=== PATIENT | male | born 1970 | race Caucasian/White ===

== ENCOUNTER 2020-05-26 14:32 | Outpatient (CLI) | payer BC, SELFPAY ==
--- NOTE | 2020-05-26 14:52 | ECHO_ITS ---
Patient Info Name: Binh Muñoz Age: 50 years : 1970 Gender: Male Ht: 75 in Wt: 270 lbs BSA: 2.58 m2 HR: 73 bpm BP: 143 / 84 mmHg Heart Rhythm: Sinus Rhythm Technical Quality: Good, Fair Exam Date: 05/26/2020 3:09 PM Exam Location: [facility] Patient Status: Outpatient Admit Date: 05/26/2020 Staff Ordering Physician: Karlo Rebolleod PA-C Direct Service Provider: Lucia Samson RDCS Attending Provider: Karlo Rebolledo PA-C Referring Physician: Amaury DOBBINS; Exam Type: CA echo doppler color flow Study Info Indications - nonrheumatic mitral valve insuffiency Complete two-dimensional, color flow and Doppler transthoracic echocardiogram is performed. Summary 1. Left ventricular chamber dimension is mildly enlarged. 2. Left ventricular systolic function is normal, estimated at 50-55%. 3. The left atrium is moderately dilated. 4. The mitral valve has normal leaflets and posterior prolapse. 5. There is moderate mitral valve regurgitation. Left Ventricle Left ventricular chamber dimension is mildly enlarged. Left ventricular systolic function is normal, estimated at 50-55%. The left ventricular diastolic function is normal. Right Ventricle Right ventricular chamber dimension is normal. Left Atria The left atrium is moderately dilated. Right Atria Right atrial chamber dimension is normal. Aortic Valve The aortic valve is normal. Pulmonic Valve The pulmonic valve is not well visualized. Mitral Valve The mitral valve has normal leaflets and posterior prolapse. There is moderate mitral valve regurgitation. Tricuspid Valve The tricuspid valve leaflets are normal. Pericardium/Pleural The pericardium appears normal. Aorta The aortic root size at the sinus of Valsalva is normal. Left Ventricular Outflow Tract Name Value Normal LVOT 2D LVOT Diameter 2.1 cm LVOT Doppler LVOT Peak Gradient 4 mmHg LVOT Mean Gradient 2 mmHg LVOT VTI 21 cm LVOT VTI/AV VTI Ratio 0.9 LVOT Stroke Volume 77 ml LVOT CO 14.3 l/min LVOT CI 5.5 l/min/m2 Pulmonic Valve Name Value Normal PV Doppler PV Peak Gradient 3 mmHg Mitral Valve Name Value Normal MV Doppler MV Decel Prowers 328 cm/s2 MV PHT 75 ms MV Area (PHT) 2.9 cm2 4.0-5.0 MV Diastolic Function
== END 2020-05-26 14:33 | disposition home or self-care (01) ==
PROVIDERS: PCP Family Medicine; Visit Provider Physician Assistant
DX: I34.0 Nonrheumatic mitral (valve) insufficiency (principal); I51.7 Cardiomegaly
CPT/HCPCS: 93306

== ENCOUNTER 2024-02-01 13:23 | Outpatient (CLI) | payer OTHER, SELFPAY ==
--- NOTE | 2024-02-01 13:49 | ECHO_ITS ---
Patient Info Name: Binh Muñoz Age: 53 years : 1970 Gender: Male Ht: 74 in Wt: 290 lbs BSA: 2.67 m2 HR: 78 bpm BP: 178 / 111 mmHg Heart Rhythm: Sinus Rhythm Technical Quality: Good Exam Date: 02/01/2024 2:00 PM Exam Location: [facility] Patient Status: Outpatient Admit Date: 02/01/2024 Staff Ordering Physician: Isabelle Vasquez NP Optical Engineering Technician: Cami Hoskins RDCS Attending Provider: Isabelle Vasquez NP Referring Physician: Pedro HARRISON; Exam Type: CA echo doppler color flow Study Info Indications - non rhumatic valve disease Complete two-dimensional, color flow and Doppler transthoracic echocardiogram is performed. Summary 1. Left ventricular chamber dimension is mildly enlarged. 2. Left ventricular systolic function is normal, estimated at 60-65%. 3. There is mildly increased left ventricular wall thickness. 4. The left ventricular diastolic function is grade I diastolic dysfunction. 5. Right ventricular systolic function is normal. 6. Left atrial chamber dimension is mildly enlarged. 7. There is mild mitral valve regurgitation, which may be underestimated due to eccentricity of the jet. 8. There is mild tricuspid valve regurgitation. Left Ventricle Left ventricular chamber dimension is mildly enlarged. Left ventricular systolic function is normal, estimated at 60-65%. There is mildly increased left ventricular wall thickness. The left ventricular diastolic function is grade I diastolic dysfunction. Right Ventricle Right ventricular chamber dimension is normal. Right ventricular systolic function is normal. Left Atria Left atrial chamber dimension is mildly enlarged. Right Atria Right atrial chamber dimension is normal. Atrial Septum Intact interatrial septum visualized by color flow imaging. Aortic Valve The aortic valve is trileaflet. There is no aortic valve stenosis. There is no aortic valve regurgitation. Pulmonic Valve The pulmonic valve is not well visualized. Mitral Valve There is mild mitral valve regurgitation, which may be underestimated due to eccentricity of the jet. Tricuspid Valve There is mild tricuspid valve regurgitation. Pericardium/Pleural There is no pericardial effusion. Inferior Vena Cava Inferior vena cava is not well visualized. Aorta The aortic root size at the sinus of Valsalva is normal. Left Ventricular Outflow Tract Name Value Normal LVOT 2D LVOT Diameter 2.2 cm LVOT Doppler LVOT Peak Gradient 6 mmHg LVOT Mean Gradient 3 mmHg LVOT VTI 28 cm LVOT VTI/AV VTI Ratio 0.9 LVOT Stroke Volume 111 ml LVOT CO 8.7 l/min LVOT CI 3.3 l/min/m2 Pulmonic Valve Name Value Normal RVOT Doppler RVOT Peak Gradient 2 mmHg PV Doppler
== END 2024-02-01 13:24 | disposition home or self-care (01) ==
PROVIDERS: PCP Internal Medicine; Visit Provider Nurse Practitioner
DX: I34.0 Nonrheumatic mitral (valve) insufficiency (principal)
CPT/HCPCS: 93306

== ENCOUNTER 2024-04-17 01:59 | Day surgery (SDC) | payer OTHER, SELFPAY ==
[2024-04-03 11:20] VITALS: BMI 37.3
[2024-04-17 08:06] VITALS: BP 136/84; PULSE 66; RESP 17; TEMP 36.4; O2SAT 99; BMI 35.2
[2024-04-17] MEDS: LACTATED RINGERS 1,000 ML 150 ML IV CONT (08:12)
--- NOTE | 2024-04-17 08:15 | WPDANESEPPF ---
Anes - Initial Pre Proc Eval Procedure: Operation Date: 04/17/24 09:30 Proposed Procedures p Colonoscopy - Alistair Hackett MD Date/Time: 04/17/24 08:15 Surgeon: Alistair Hackett MD Pre Op Diagnosis: Personal history colon polyps Patient Data Age: 54 Gender: M Height: 1.88 m Weight: 124.3 kg Last Vital Signs Temp 97.5 F L 04/17/24 08:06 Pulse 66 04/17/24 08:06 Resp 17 04/17/24 08:06 BP 136/84 04/17/24 08:06 Pulse Ox 99 04/17/24 08:06 O2 Del Method Room Air 04/17/24 08:06 Allergies Allergy/AdvReac Type Severity Reaction Status Date / Time omeprazole Allergy Unknown diarrrhea Verified 04/17/24 08:05 Home Medications Medication Instructions Recorded Confirmed Type fluticasone propionate 50 1 spray intranasal DAILY 01/08/22 04/17/24 History mcg/actuation nasal spray,suspension (Flonase Allergy Relief) sildenafil 100 mg tablet 100 mg PO DAILY PRN sexual 10/20/23 04/17/24 Rx activity #10 tabs atorvastatin 20 mg tablet See Rx Instructions .Route 11/28/23 04/17/24 Rx .COMPLEX #90 tabs telmisartan 80 See Rx Instructions .Route 11/28/23 04/17/24 Rx mg-hydrochlorothiazide 12.5 mg .COMPLEX #90 tabs tablet Patient hx anesthesia problems: none Family hx anesthesia problems: none Results Review: All pre-operative results and documents have been reviewed as part of the pre-operative evaluation. [facility] Family History Family History Mother Hypertension Sibling Hypertension Family history of elevated blood lipids Social History Social History Social History: Caffeine-daily Smoking status: Never smoker Alcohol intake: current Alcohol use details: occasionally Lack of Transportation: No Lack of Food: Never True Current Housing: I Have Housing Concerned About Future Housing: No Difficulty Paying Gas/Electric Bills: No Difficulty Paying for Meds: No Currently Unemployed: No Education: High School Diploma/GED Difficulty w/ Childcare or Family Care: No Living arrangements: with family Spiritual care concerns: No Anes - Eval Final PreProcedure Day of Procedure 04/17/24 08:15 Patient weight: obese Heart: regular rate and rhythm Lungs: clear to auscultation Airway: Mallampati scale class II and special considerations (Poor flexion. ) poor extension Neurological: alert and oriented Last oral intake: >/= 8 hours ASA classification: III Emergent: no Anesthetic plan: proceed Anesthesia type and monitoring: general GIVS and standard monitoring Results Review: All pre-operative results and documents have been reviewed as part of the pre-operative evaluation. HTN, hyperlipidemia, LUIS on CPAP (mild per pt). Informed Consent: The patient's anesthetic plan and its attendant risks and benefits were discussed with the patient/family/POA. Questions were solicited and answers provided to the satisfaction of the patient/family/POA.
--- NOTE | 2024-04-17 09:21 | PM.HPGS ---
History of Present Illness History of Present Illness Consent: Risks, benefits, and alternatives have been discussed and questions answered. Patient agrees to proceed with procedure. Chief complaint: Personal history colon polyps Narrative: Binh Muñoz is a 54 year old male with colon polyp in 2019 Review of Systems Review of Systems: All systems reviewed & are unremarkable except as noted in HPI and below PMFSH Family History Family History Mother Hypertension Sibling Hypertension Family history of elevated blood lipids Social History Social History Social History: Caffeine-daily Smoking status: Never smoker Alcohol intake: current Alcohol use details: occasionally Lack of Transportation: No Lack of Food: Never True Current Housing: I Have Housing Concerned About Future Housing: No Difficulty Paying Gas/Electric Bills: No Difficulty Paying for Meds: No Currently Unemployed: No Education: High School Diploma/GED Difficulty w/ Childcare or Family Care: No Living arrangements: with family Spiritual care concerns: No Meds Home Medications and Allergies Home Medications Medication Instructions Recorded Confirmed Type fluticasone propionate 50 1 spray intranasal DAILY 01/08/22 04/17/24 History mcg/actuation nasal spray,suspension (Flonase Allergy Relief) sildenafil 100 mg tablet 100 mg PO DAILY PRN sexual 10/20/23 04/17/24 Rx activity #10 tabs atorvastatin 20 mg tablet See Rx Instructions .Route 11/28/23 04/17/24 Rx .COMPLEX #90 tabs telmisartan 80 See Rx Instructions .Route 11/28/23 04/17/24 Rx mg-hydrochlorothiazide 12.5 mg .COMPLEX #90 tabs tablet Allergies Allergy/AdvReac Type Severity Reaction Status Date / Time omeprazole Allergy Unknown diarrrhea Verified 04/17/24 08:05 Vital Signs Vital Signs - 24 hr 04/17/24 08:06 Temperature 97.5 F L Pulse Rate 66 Respiratory Rate 17 Blood Pressure 136/84 Pulse Oximetry 99 Oxygen Delivery Room Air Exam Const: General: comfortable and no acute distress HENMT: Face/Nose/Sinus: Normal nares present Eyes: General: appearance normal, both eyes and all related structures Neck: Neck: no JVD Resp: Auscultation: clear to auscultation bilaterally Cardio: Rate: regular rate Rhythm: regular rhythm GI: Inspection: non-distended GI Palp: Yes Soft to palpation Skin: General skin exam: normal color Neuro: General: gait normal Speech: normal speech Extrem: General: normal to inspection Psych: Mental Status: mental status grossly normal Assessment and Plan Assessment and plan (1) History of colon polyps: Code(s): Z86.010 - Personal history of colonic polyps Status: Acute Assessment and Plan: colonoscopy
[2024-04-17 09:34] VITALS: BP 142/66; PULSE 73; RESP 22; O2SAT 98
[2024-04-17 09:44] VITALS: BP 142/86; PULSE 67; RESP 17; O2SAT 97
[2024-04-17 09:54] VITALS: BP 132/86; PULSE 62; RESP 18; O2SAT 100
== END 2024-04-17 10:02 | disposition home or self-care (01) ==
PROVIDERS: PCP Internal Medicine; Visit Provider Internal Medicine Gastroenterology
PROC: 0DJD8ZZ Inspection of Lower Intestinal Tract, Via Natural or Artificial Opening Endoscopic (ICD-10-PCS; CPT 45378; principal; 2024-04-17 09:30)
DX: Z12.11 Encounter for screening for malignant neoplasm of colon (principal); D12.3 Benign neoplasm of transverse colon; D12.5 Benign neoplasm of sigmoid colon; K57.30 Diverticulosis of large intestine without perforation or abscess without bleeding; K64.8 Other hemorrhoids; E66.9 Obesity, unspecified; Z68.35 Body mass index [BMI] 35.0-35.9, adult
CPT/HCPCS: 45385; 88305; J2704; J7120